=== PATIENT | female | born 1940 | race Caucasian/White ===

== ENCOUNTER 2023-09-03 17:25 | Inpatient (IN) | payer MEDICARE, OTHER ==
[~2023-09-03] VITALS: Ht 157.5 cm; Wt 101.2 kg
[2023-09-03] MEDS: VANCOMYCIN 1 GM in IV D5W 250 ML IV ONE (18:00)
[2023-09-03] MEDS ORDERED: PIPERACI/TAZO 3.375GM/D5W 50ML PB IV ONE ×2 (18:00→23:45)
[2023-09-03] MEDS: PIPERACILLIN /TAZOBACTAM 3.375 G in IV D5W 50 ML IV ONE (18:00)
[2023-09-03] MEDS ORDERED: VANCOMYCIN 1 GM /D5W 250 ML PB IV ONE (18:00)
[2023-09-03 18:10] LABS: BASOPHILS # (AUTO) 0.1 K/uL (0.0-0.2); BASOPHILS % (AUTO) 1.3 % (0.0-2.0); EOSINOPHILS # (AUTO) 0.4 K/uL (0.0-0.7); HEMATOCRIT 33 % (33-45); HEMOGLOBIN 10.7 g/dL (11.5-14.8); LYMPHOCYTES # (AUTO) 2.9 K/uL (0.8-4.8); LYMPHOCYTES % (AUTO) 29.6 % (20.0-44.0); MEAN CORPUSCULAR HEMOGLOBIN 28 PG (26.0-33.0); MEAN CORPUSCULAR HGB CONC 33 g/dl (31.0-36.0); MEAN CORPUSCULAR VOLUME 84 fL (82-100); MONOCYTES # (AUTO) 0.9 K/uL (0.1-1.30); MONOCYTES % (AUTO) 9.5 % (2.0-12.0); NEUTROPHILS # (AUTO) 5.4 K/uL (1.8-8.9); NEUTROPHILS % (AUTO) 55.6 % (43.0-81.0); PLATELET COUNT (AUTO) 278 K/uL (150-450); RED BLOOD CELL COUNT(AUTO) 3.89 MIL/uL (4.0-5.2); RED CELL DISTRIBUTION WIDTH 13.5 % (11.5-15.0); WHITE BLOOD COUNT (AUTO) 9.7 K/uL (4.3-11.0)
[2023-09-03 18:17] LABS: CALCIUM, SERUM 9.1 mg/dL (8.5-10.1); CREATININE 1.3 mg/dL (0.6-1.3); POTASSIUM 4.3 mmol/L (3.5-5.1)
[2023-09-03 18:26] LABS: ALBUMIN 3.5 g/dL (3.4-5.0); BILIRUBIN,DIRECT 0.1 mg/dL (0.0-0.2); BILIRUBIN,TOTAL 0.2 mg/dL (0.2-1.0); TOTAL PROTEIN, SERUM 7.5 g/dL (6.4-8.2)
[2023-09-03 18:31] LABS: LACTIC ACID 1.8 mmol/L (0.4-2.0)
[2023-09-03 18:45] LABS: PARTIAL THROMBOPLASTIN TIME 28.2 SEC (24.3-34.3); PROTHROMBIN TIME 10.6 SECS (9.2-11.1)
[2023-09-03] MEDS ORDERED: FURO20TA4 PO (19:21)
[2023-09-03] MEDS ORDERED: MAGN400T52 PO (19:21)
[2023-09-03] MEDS ORDERED: OLME1TAB40 PO (19:21)
[2023-09-03] MEDS ORDERED: PRAV40TA3 PO (19:21)
[2023-09-03] MEDS ORDERED: PANT40TA49 PO ×2 (19:21→21:17)
[2023-09-03] MEDS ORDERED: ERGO500093 PO (19:21)
[2023-09-03] MEDS ORDERED: SENN-261 PO (19:21)
[2023-09-03] MEDS ORDERED: HYDR-4076 PO (19:21)
[2023-09-03] MEDS ORDERED: MECL-159 PO (19:21)
[2023-09-03] MEDS ORDERED: ASPI-1420 PO (19:21)
[2023-09-03] MEDS ORDERED: ONDANSETRON HCL/PF 4 MG/2 ML VIAL IVP PRN (20:00)
[2023-09-03] MEDS ORDERED: ACETAMINOPHEN 325 MG TABLET PO PRN (20:00)
[2023-09-03] MEDS: FUROSEMIDE 40 MG/4 ML VIAL IV ONE (20:00)
[2023-09-03] MEDS ORDERED: MAGNESIUM HYDROXIDE 30 ML UDC PO PRN (20:00)
[2023-09-03] MEDS ORDERED: ERGOCALCIFEROL (VITAMIN D 2) 50,000 UNIT CAPSULE PO SCH (20:00)
[2023-09-03] MEDS ORDERED: ZOLPIDEM TARTRATE 5 MG TABLET PO PRN (20:00)
[2023-09-03] MEDS ORDERED: MAG HYDROX/AL HYDROX/SIMETH 30 ML UDC PO PRN (20:00)
[2023-09-03] MEDS ORDERED: Z GUARD REMEDY 4 OZ OINT TP PRN (20:00)
[2023-09-03] MEDS ORDERED: hydrALAZINE HCL 25 MG TABLET PO PRN (20:00)
[2023-09-03 20:45] VITALS: BP 148/52; TEMP 97.9; O2SAT 94
[2023-09-03] MEDS ORDERED: SENN-291 PO (21:17)
[2023-09-03] MEDS ORDERED: MAGN400T8 PO (21:17)
[2023-09-03] MEDS ORDERED: AMLO-365 PO (21:17)
[2023-09-03] MEDS ORDERED: PRAV10TA40 PO (21:17)
[2023-09-03] MEDS ORDERED: MELO-105 PO (21:17)
[2023-09-03] MEDS ORDERED: GABA-532 PO (21:17)
[2023-09-03] MEDS ORDERED: CYAN500T64 PO (21:17)
[2023-09-03] MEDS ORDERED: DEXTROSE 50%-WATER 50 ML DISP.SYRIN IV PRN (22:30)
[2023-09-03] MEDS: PIPERACILLIN /TAZOBACTAM 3.375 G in IV D5W 50 ML IV SCH (23:47)
[2023-09-04] VITALS: BP 126/48; TEMP 98.9; O2SAT 94
[2023-09-04] MEDS ORDERED: PIPERACILLIN /TAZOBACTAM 3.375 G in IV D5W 50 ML IV SCH
[2023-09-04 05:00] VITALS: BP 149/59; TEMP 98.4; O2SAT 94
[2023-09-04] MEDS ORDERED: PIPERACI/TAZO 3.375GM/D5W 50ML PB IV ONE (05:39)
[2023-09-04] MEDS: BLOOD SUGAR DIAGNOSTIC 1 EACH STRIP IN SCH (06:40)
[2023-09-04 06:57] LABS: BASOPHILS # (AUTO) 0.1 K/uL (0.0-0.2); BASOPHILS % (AUTO) 0.8 % (0.0-2.0); EOSINOPHILS # (AUTO) 0.4 K/uL (0.0-0.7); EOSINOPHILS % (AUTO) 4.5 % (0.0-6.0); HEMATOCRIT 31 % (33-45); HEMOGLOBIN 10.2 g/dL (11.5-14.8); LYMPHOCYTES # (AUTO) 2.6 K/uL (0.8-4.8); LYMPHOCYTES % (AUTO) 32.3 % (20.0-44.0); MEAN CORPUSCULAR HEMOGLOBIN 28 PG (26.0-33.0); MEAN CORPUSCULAR HGB CONC 33 g/dl (31.0-36.0); MEAN CORPUSCULAR VOLUME 84 fL (82-100); MONOCYTES # (AUTO) 0.8 K/uL (0.1-1.30); MONOCYTES % (AUTO) 9.4 % (2.0-12.0); NEUTROPHILS # (AUTO) 4.3 K/uL (1.8-8.9); PLATELET COUNT (AUTO) 250 K/uL (150-450); RED BLOOD CELL COUNT(AUTO) 3.69 MIL/uL (4.0-5.2); RED CELL DISTRIBUTION WIDTH 13.7 % (11.5-15.0); WHITE BLOOD COUNT (AUTO) 8.1 K/uL (4.3-11.0)
[2023-09-04 07:27] LABS: CARBON DIOXIDE 25 mmol/L (21-32); CHLORIDE 103 mmol/L (98-107); CREATININE 1.3 mg/dL (0.6-1.3); GLUCOSE 112 mg/dL (74-106); POTASSIUM 4.2 mmol/L (3.5-5.1); SODIUM SERUM 138 mmol/L (136-145); UREA NITROGEN, BLOOD 24 mg/dL (7-18)
[2023-09-04 07:52] LABS: CALCIUM, SERUM 8.5 mg/dL (8.5-10.1)
[2023-09-04] MEDS: PANTOPRAZOLE 40 MG TABLET.DR PO SCH (08:11)
[2023-09-04] MEDS: GABAPENTIN 300 MG CAPSULE PO SCH (08:11)
[2023-09-04] MEDS: CYANOCOBALAMIN 500 MCG TABLET PO SCH (08:12)
[2023-09-04] MEDS: ASPIRIN EC 81 MG TABLET.DR PO SCH (08:12)
[2023-09-04] MEDS: MELOXICAM 7.5 MG TABLET PO SCH (08:13)
[2023-09-04] MEDS: CYANOCOBALAMIN 100 MCG TABLET PO SCH (08:13)
[2023-09-04] MEDS: AMLODIPINE BESYLATE 10 MG TABLET PO SCH (08:14)
[2023-09-04] MEDS: HYDROCHLOROTHIAZIDE 25 MG TABLET PO SCH (08:14)
[2023-09-04] MEDS: PIPERACILLIN /TAZOBACTAM 3.375 G in IV D5W 100 ML IV SCH (08:15)
[2023-09-04] MEDS: LOSARTAN POTASSIUM 50 MG TABLET PO SCH (08:15)
[2023-09-04] MEDS ORDERED: HCTHIAZID PO SCH (09:00)
[2023-09-04] MEDS ORDERED: AMLODIPIN PO SCH (09:00)
[2023-09-04] MEDS ORDERED: [UNRECOGNIZED DRUG - OTHER] PO SCH (09:00)
[2023-09-04] MEDS ORDERED: OLMESARTAN PO SCH (09:00)
[2023-09-04] MEDS: VALSARTAN 80 MG TABLET PO SCH (09:00)
[2023-09-04 09:43] LABS: THYROID STIMULATING HORMONE 2.471 uIU/mL (0.358-3.74)
[2023-09-04] MEDS: INSULIN REGULAR, HUMAN 100 UNIT/ML 3 ML VIAL SQ PRN (12:02)
[2023-09-04] MEDS: CEFTRIAXONE 2 G in IV D5W 100 ML IV SCH (13:56)
[2023-09-04] MEDS: ENOXAPARIN SODIUM 40 MG/0.4 ML DISP.SYRIN SQ SCH (13:57)
[2023-09-04] MEDS: ATORVASTATIN 10 MG TABLET PO SCH (17:23)
[2023-09-04] MEDS: SENNOSIDES 8.6 MG TABLET PO SCH (17:23)
[2023-09-04] MEDS: VANCOMYCIN 1 GM in IV D5W 250ml IV SCH (17:25)
[2023-09-04 19:53] VITALS: BP 148/65; TEMP 98.1; O2SAT 94
[2023-09-04 20:00] VITALS: BP 148/68; TEMP 98.1; O2SAT 94
[2023-09-05] VITALS: BP 144/84; TEMP 98.1; O2SAT 97
[2023-09-05 04:00] VITALS: BP 136/78; TEMP 98; O2SAT 96
[2023-09-05 04:30] VITALS: BP 136/78; TEMP 98; O2SAT 96
[2023-09-05 07:17] LABS: BASOPHILS # (AUTO) 0.1 K/uL (0.0-0.2); BASOPHILS % (AUTO) 0.8 % (0.0-2.0); EOSINOPHILS # (AUTO) 0.4 K/uL (0.0-0.7); EOSINOPHILS % (AUTO) 5.6 % (0.0-6.0); HEMATOCRIT 33 % (33-45); HEMOGLOBIN 10.9 g/dL (11.5-14.8); LYMPHOCYTES # (AUTO) 1.7 K/uL (0.8-4.8); LYMPHOCYTES % (AUTO) 25.3 % (20.0-44.0); MEAN CORPUSCULAR HEMOGLOBIN 28 PG (26.0-33.0); MEAN CORPUSCULAR HGB CONC 33 g/dl (31.0-36.0); MEAN CORPUSCULAR VOLUME 84 fL (82-100); MONOCYTES # (AUTO) 0.8 K/uL (0.1-1.30); MONOCYTES % (AUTO) 11.5 % (2.0-12.0); NEUTROPHILS # (AUTO) 3.9 K/uL (1.8-8.9); NEUTROPHILS % (AUTO) 56.8 % (43.0-81.0); PLATELET COUNT (AUTO) 250 K/uL (150-450); RED BLOOD CELL COUNT(AUTO) 3.93 MIL/uL (4.0-5.2); RED CELL DISTRIBUTION WIDTH 13.5 % (11.5-15.0); WHITE BLOOD COUNT (AUTO) 6.9 K/uL (4.3-11.0)
[2023-09-05 07:42] LABS: CALCIUM, SERUM 8.4 mg/dL (8.5-10.1); CARBON DIOXIDE 27 mmol/L (21-32); CHLORIDE 102 mmol/L (98-107); CREATININE 1.2 mg/dL (0.6-1.3); GLUCOSE 109 mg/dL (74-106); MAGNESIUM 2.1 mg/dL (1.8-2.4); PHOSPHORUS 3.5 mg/dL (2.5-4.9); POTASSIUM 3.9 mmol/L (3.5-5.1); SODIUM SERUM 138 mmol/L (136-145); UREA NITROGEN, BLOOD 21 mg/dL (7-18)
[2023-09-05 08:33] VITALS: BP 153/63
[2023-09-05] MEDS ORDERED: SULF1TAB48 PO (10:33)
[2023-09-05] MEDS ORDERED: CEPH-570 PO (10:33)
[2023-09-05] MEDS ORDERED: ACID1TAB12 PO (10:33)
== END 2023-09-05 16:48 | disposition home health service (06) | DRG 291 ==
LOC: ER 17:25 → MED 20:17 → TELE 21:59 → MED 09-05 16:01
PROVIDERS: ADMIT Nurse Practitioner Acute Care; ATTEND Nurse Practitioner Acute Care
DX: I11.0 Hypertensive heart disease with heart failure (principal); I50.33 Acute on chronic diastolic (congestive) heart failure; L03.116 Cellulitis of left lower limb; Z68.41 Body mass index [BMI] 40.0-44.9, adult; L03.115 Cellulitis of right lower limb; E11.65 Type 2 diabetes mellitus with hyperglycemia; E78.00 Pure hypercholesterolemia, unspecified; K21.9 Gastro-esophageal reflux disease without esophagitis; Z87.09 Personal history of other diseases of the respiratory system; F41.9 Anxiety disorder, unspecified; F32.A Depression, unspecified; Z79.82 Long term (current) use of aspirin; Z79.899 Other long term (current) drug therapy; I89.0 Lymphedema, not elsewhere classified; E66.9 Obesity, unspecified; I48.91 Unspecified atrial fibrillation; E11.42 Type 2 diabetes mellitus with diabetic polyneuropathy; I87.8 Other specified disorders of veins; R79.89 Other specified abnormal findings of blood chemistry; Z91.148 Patient's other noncompliance with medication regimen for other reason
CPT/HCPCS: 36415; 71045-TC; 80048-TC; 80061-TC; 80076-TC; 82728-TC; 82962-TC; 83540-TC; 83605-TC; 83735-TC; 83880; 84100-TC; 84439-TC; 84443-TC; 85025-TC; 85730-TC; 87040-TC; 93307-TC; 93971-TC; A4223; G0378; J0696; J1650; J1815; J2543; J3370; J7050; J7060

== ENCOUNTER 2024-03-07 23:25 | Emergency (ER) | payer MEDICARE, OTHER ==
[~2024-03-07] VITALS: Ht 154.9 cm; Wt 90.7 kg
[~2024-03-07 23:25] MED LIST: ACID1TAB12 PO; AMLO-365 PO; ASPI-1420 PO; CEPH-570 PO; CYAN500T64 PO; ERGO500093 PO; FURO20TA4 PO; GABA-532 PO; HYDR-4076 PO; MAGN400T52 PO; MECL-159 PO; MELO-105 PO; OLME1TAB40 PO; PANT40TA49 PO; PRAV40TA3 PO; SENN-261 PO; SULF1TAB48 PO
[2024-03-08 01:05] VITALS: BP 156/65; TEMP 98.1; O2SAT 98
== END 2024-03-08 01:16 | disposition home or self-care (01) ==
LOC: ER 23:30
DX: S50.11XA Contusion of right forearm, initial encounter (principal); I10 Essential (primary) hypertension; E78.00 Pure hypercholesterolemia, unspecified; K21.9 Gastro-esophageal reflux disease without esophagitis; Z79.82 Long term (current) use of aspirin; Z79.1 Long term (current) use of non-steroidal anti-inflammatories (NSAID); Z79.899 Other long term (current) drug therapy; X58.XXXA Exposure to other specified factors, initial encounter; Y93.89 Activity, other specified; Y92.89 Other specified places as the place of occurrence of the external cause; Y99.8 Other external cause status